=== PATIENT | female | born 2005 | race Caucasian/White ===

== ENCOUNTER 2023-01-24 00:31 | Emergency (ER) | payer MEDICAID, OTHER ==
[~2023-01-24] VITALS: Ht 180.3 cm; Wt 85.9 kg
[2023-01-24 00:54] VITALS: BP 117/59
== END 2023-01-24 01:45 | disposition left against medical advice (07) ==
LOC: ER 00:31
DX: O20.8 Other hemorrhage in early pregnancy (principal); Z3A.13 13 weeks gestation of pregnancy; Z53.21 Procedure and treatment not carried out due to patient leaving prior to being seen by health care provider